=== PATIENT | male | born 1960 | race Asian ===

== ENCOUNTER 2018-11-13 01:56 | Emergency (ER) | payer OTHER ==
[~2018-11-13] VITALS: Ht 175.3 cm; Wt 78.0 kg
[2018-11-13 02:00] VITALS: Ht 175.3 cm; Wt 78.0 kg
[2018-11-13 03:03] LABS: PLATELET COUNT 220 x10^3mcL (130-400); RED CELL DISTRIBUTION WIDTH 12.7 % (11.5-14.5)
[2018-11-13 03:05] LABS: CALCIUM 9.2 mg/dL (8.5-10.1); CARBON DIOXIDE 27.3 mmol/L (21-32); CHLORIDE SERUM 102 mmol/L (98-107); CREATININE SERUM 0.9 mg/dL (0.7-1.3); GFR1 > 60 mL/min; GLUCOSE SERUM 107 mg/dL (74-106); SODIUM SERUM 140 mmol/L (136-145)
[2018-11-13 03:09] LABS: ALBUMIN 4.2 g/dL (3.4-5.0); ALKALINE PHOSPHATASE 81 U/L (46-116); ALT/SGPT 41 U/L (16-63); AST/SGOT 38 U/L (15-37); BILIRUBIN TOTAL 0.55 mg/dL (0.20-1.00); LIPASE 91 IU/L (73-393)
[2018-11-13 03:10] LABS: TOTAL PROTEIN, SERUM 8.6 g/dL (6.4-8.2)
[2018-11-13 08:46] VITALS: BP 121/75
== END 2018-11-13 08:46 | disposition short-term general hospital (02) ==
LOC: ED 01:56
PROVIDERS: Emergency Medicine
DX: K56.699 Other intestinal obstruction unspecified as to partial versus complete obstruction (principal); M33.20 Polymyositis, organ involvement unspecified
CPT/HCPCS: J2270; J2405; J3010; J7030

== ENCOUNTER 2018-12-12 10:06 | Emergency (ER) | payer OTHER ==
[~2018-12-12] VITALS: Ht 175.3 cm; Wt 77.6 kg
[2018-12-12 10:16] VITALS: Ht 175.3 cm; Wt 77.6 kg
[2018-12-12 12:13] LABS: BASOPHIL % 0.2 % (0-2); PLATELET COUNT 240 x10^3mcL (130-400); RED CELL DISTRIBUTION WIDTH 14.2 % (11.5-14.5)
[2018-12-12 12:32] LABS: CALCIUM 8.5 mg/dL (8.5-10.1); CARBON DIOXIDE 28.2 mmol/L (21-32); CHLORIDE SERUM 105 mmol/L (98-107); CREATININE SERUM 0.7 mg/dL (0.7-1.3); GFR1 > 60 mL/min; GLUCOSE SERUM 93 mg/dL (74-106); POTASSIUM SERUM 3.8 mmol/L (3.5-5.1); SODIUM SERUM 143 mmol/L (136-145)
[2018-12-12 12:36] LABS: ALBUMIN 3.7 g/dL (3.4-5.0); ALKALINE PHOSPHATASE 85 U/L (46-116); ALT/SGPT 26 U/L (16-63); AST/SGOT 25 U/L (15-37); BILIRUBIN TOTAL 1.5 mg/dL (0.20-1.00); LIPASE 66 IU/L (73-393); TOTAL PROTEIN, SERUM 8.6 g/dL (6.4-8.2)
[2018-12-12 15:22] LABS: microscopic required? YES; urine erythrocyte 2+ (NEGATIVE)
[2018-12-12 16:27] VITALS: BP 141/86
== END 2018-12-12 16:27 | disposition home or self-care (01) ==
LOC: ED 10:06
PROVIDERS: Emergency Medicine
DX: J18.9 Pneumonia, unspecified organism (principal); R10.811 Right upper quadrant abdominal tenderness
CPT/HCPCS: J0456; J0696; J1885; J7050